=== PATIENT | male | born 1950 | race Caucasian/White ===

== ENCOUNTER 2020-03-07 10:10 | Emergency (ER) | payer MEDICARE, BC ==
[2020-03-07] MEDS ORDERED: Lidocaine 1% 10 ML MDV INJECT ONE (10:37)
--- NOTE | 2020-03-07 10:54 | CT ---
Head CT Technique: Multiple axial sections through the brain were obtained. Intravenous contrast was not utilized. Comparison: No prior intracranial imaging is available. Findings: Ventricles along with basal cisterns and sulci over the convexities are mildly prominent. No abnormal parenchymal densities are seen. No evidence of intracranial hemorrhage. No midline shift or mass-effect is seen. Bone window settings were reviewed. No acute calvarial abnormality is seen. Visualized mastoid sinuses and visualized paranasal sinuses show nothing acute. No acute calvarial finding is appreciated. Impression: 1. Mild generalized atrophy. 2. No acute intracranial abnormality is identified. Diagnostic code #2 This report was dictated in MDT
--- NOTE | 2020-03-07 11:29 | CR ---
Left shoulder: 3 views left shoulder were obtained. Comparison: No prior shoulder study is available. Study correlated with chest and rib exam performed on the same day. Acromioclavicular joint appears within normal limits. Mild degenerative change is noted within the glenohumeral joint. Bony structures are osteopenic. Equivocal cortical irregularity within 3 or 4 ribs is noted on the left side. Difficult to completely exclude acute or chronic rib fractures. These findings are not seen on rib exam performed on the same day which likely relates to differences in positioning on the shoulder study. Impression: 1. 3 or 4 rib abnormalities possibly due to acute or chronic rib fractures. 2. Degenerative change within the glenohumeral joint. Diagnostic code #3 This report was dictated in MDT
--- NOTE | 2020-03-07 11:29 | CR ---
Chest and left ribs: Frontal view of the chest was obtained as well as 3 views left ribs. Comparison: Previous chest x-ray of 02/12/20. Heart size is normal. Tortuous thoracic aorta is seen. Lungs are clear with no acute parenchymal change. No discrete fracture or other left-sided rib abnormality is appreciated. Degenerative endplate spurring is noted within the spine. Impression: 1. No discrete left-sided rib fracture is seen. Nondisplaced fracture could be missed. 2. Nothing acute is seen on accompanying chest x-ray. Note: Please see left shoulder study for further rib detail comment. Diagnostic code #2 This report was dictated in MDT
--- NOTE | 2020-03-07 12:17 | EDM.PDOC ---
ED HPI GENERAL MEDICAL PROBLEM - General Chief Complaint: Laceration Stated Complaint: EYE LAC Time Seen by Provider: 03/07/20 10:18 Source of Information: Reports: Patient, RN Notes Reviewed - History of Present Illness INITIAL COMMENTS - FREE TEXT/NARRATIVE: 69 yr old male tripped stepping off of or over a curb. Came down hard on his L side, hit L forehead on the L. No LOC. Very mild Arnold only, no nausea or vomiting. He is on eliquis blood thinner for his heart, probable a fib. No neck or back pain. Moderate L shoulder pain, worse with motion of L arm. Mild L chest wall pain. Head Pain Score (Numeric/FACES): 4 - Related Data Allergies Allergy/AdvReac Type Severity Reaction Status Date / Time No Known Allergies Allergy Verified 03/07/20 10:51 Home Meds: Home Meds Apixaban [Eliquis] 5 mg PO BID 03/07/20 [History] Flecainide Acetate 100 mg PO BID 03/07/20 [History] Irbesartan 300 mg PO DAILY 03/07/20 [History] Triamterene/Hydrochlorothiazid [Triamterene-HCTZ 37.5-25 MG] 1 tab PO DAILY [History] atenoloL [Atenolol] 50 mg PO BID 03/07/20 [History] dilTIAZem HCl [Diltiazem 24Hr ER (Cd)] 180 mg PO DAILY 03/07/20 [History] Past Medical History Other Cardiovascular History: atrial fibrilation Endocrine/Metabolic History: Reports: Diabetes, Type II - Past Surgical History Cardiovascular Surgical History: Reports: Cardiac Ablation GI Surgical History: Reports: Colonoscopy Musculoskeletal Surgical History: Reports: Knee Replacement Social & Family History - Tobacco Use Smoking Status *Q: Never Smoker - Caffeine Use Caffeine Use: Reports: None - Recreational Drug Use Recreational Drug Use: No ED ROS GENERAL - Review of Systems Review Of Systems: See Below Constitutional: Reports: No Symptoms HEENT: Denies: Ear Discharge, Sinus Problem, Vertigo, Vision Change Respiratory: Reports: Pleuritic Chest Pain (very mild). Denies: Shortness of Breath Cardiovascular: Reports: Chest Pain GI/Abdominal: Denies: Abdominal Pain, Nausea, Vomiting Musculoskeletal: Reports: Shoulder Pain. Denies: Back Pain, Leg Pain Skin: Reports: Other (L injury L forehead) Neurological: Reports: Headache (very mild only). Denies: Numbness, Tingling, Trouble Speaking, Difficulty Walking ED EXAM, SKIN/RASH Exam: See Below General Appearance: Alert, No Apparent Distress Ears: Normal External Exam Nose: Normal Inspection Throat/Mouth: Normal Inspection Head: Facial Swelling (with 2.5 cm L L forehead just above L eyebrow) Neck: Supple, Non-Tender Respiratory/Chest: No Respiratory Distress, Lungs Clear, Normal Breath Sounds Cardiovascular: Regular Rate, Rhythm Back Exam: No: Paraspinal Tenderness, Vertebral Tenderness Extremities: Other (tenderness L shoulder, no visible swelling or bruising) Neurological: No Motor/Sensory Deficits Skin: Warm, Dry, Normal Color ED SKIN PROCEDURES - Laceration/Wound Repair Left Forehead Appearance: Linear, Irregular Distal NVT: Neuro & Vascular Intact Anesthetic Type: Local Local Anesthesia - Lidocaine (Xylocaine): 1% Plain Skin Prep: Saline Suture Size: 4-0 # of Sutures: 7 Course - Vital Signs Last Recorded V/S: Last Vital Signs Temp 97.5 F 03/07/20 10:17 Pulse 68 03/07/20 10:17 Resp 13 03/07/20 10:17 BP 183/86 H 03/07/20 10:17 Pulse Ox 95 03/07/20 10:17 - Orders/Labs/Meds Orders: Active Orders 24 hr Category Date Time Status DME for Discharge [COMM] Stat Oth 03/07/20 12:37 Ordered Meds: Medications Discontinued Medications Generic Name Dose Route Start Last Admin Trade Name Freq PRN Reason Stop Dose Admin Lidocaine HCl 10 ml 03/07/20 10:37 03/07/20 11:19 Xylocaine 1% INJECT 03/07/20 10:38 10 ml ONETIME ONE Administration Departure - Departure Time of Disposition: 12:11 Disposition: Home, Self-Care 01 Condition: Fair Clinical Impression: Fall Qualifiers: Encounter type: initial encounter Qualified Code(s): W19.XXXA - Unspecified fall, initial encounter Contusion of forehead Qualifiers: Encounter type: initial encounter Qualified Code(s): S00.83XA - Contusion of other part of head, initial encounter Laceration of forehead Qualifiers: Encounter type: initial encounter Qualified Code(s): S01.81XA - Laceration without foreign body of other part of head, initial encounter Shoulder contusion Qualifiers: Encounter type: initial encounter Laterality: left Qualified Code(s): S40.012A - Contusion of left shoulder, initial encounter - Discharge Information Instructions: Contusion, [id number] Referrals: Cordelia Newell, [employer]HER [Primary Care Provider] - Forms: ED Department Discharge Additional Instructions: Lac care instr. Ice packs and elevation for swelling as needed. Stitches out in about 7 days. That can be done at the [facility], call for appt. Tylenol if needed for discomfort. Arm Sling. Start exercising shoulder and arm at least twice daily so you do not get a stiff frozen shoulder. Follow up clinic for shoulder pain as needed if that is not getting better over the next 7 to 10 days as needed. Return to ED or follow up clinic for any severe difficulty breathing or if symptoms otherwise worsening in any way. Sepsis Event Note - Evaluation Sepsis Screening Result: No Definite Risk - Focused Exam Vital Signs: Vital Signs Temp Pulse Resp BP Pulse Ox 03/07/20 10:17 97.5 F 68 13 183/86 H 95 Date Exam was Performed: 03/07/20 Time Exam was Performed: 13:03 - My Orders Last 24 Hours: My Active Orders 03/07/20 12:37 DME for Discharge [COMM] Stat - Assessment/Plan Last 24 Hours: My Active Orders 03/07/20 12:37 DME for Discharge [COMM] Stat
== END 2020-03-07 12:50 | disposition home or self-care (01) ==
LOC: JD.ED 10:10
DX: S01.81XA Laceration without foreign body of other part of head, initial encounter (principal); S40.012A Contusion of left shoulder, initial encounter; E11.9 Type 2 diabetes mellitus without complications; I48.91 Unspecified atrial fibrillation; Z79.01 Long term (current) use of anticoagulants; Z79.899 Other long term (current) drug therapy; W01.0XXA Fall on same level from slipping, tripping and stumbling without subsequent striking against object, initial encounter
CPT/HCPCS: 12011; 70450; 71101; 73030; 99285; J2001; 99282

== ENCOUNTER 2020-05-08 16:57 | Emergency (ER) | payer MEDICARE, BC ==
[2020-05-08] MEDS ORDERED: Diltiazem 50 MG/10 ML SDV IVPUSH ONE (17:07)
--- NOTE | 2020-05-08 17:13 | EDM.PDOC ---
ED HPI GENERAL MEDICAL PROBLEM - General Chief Complaint: Cardiovascular Problem Stated Complaint: [facility] Time Seen by Provider: 05/08/20 17:07 Source of Information: Reports: Patient History Limitations: Reports: No Limitations - History of Present Illness INITIAL COMMENTS - FREE TEXT/NARRATIVE: 69-year-old male presents to the ED per [facility] ambulance. The patient started out with the [place] ambulance with network liaison and then opted to meet up with [facility] paramedics to provide transport to [place]. Patient states that around 1500 hrs. today he started to feel slightly lightheaded and dizzy and did develop some central chest pressure discomfort. He did not feel quite well and therefore decided to go home and check his blood pressure which was gia vated and also his heart rate was elevated. Patient has a history of chronic atrial fibrillation with failed ablation in the past. He has been on flecainide and has not had much troubles in terms of rapid atrial fibrillation rates for the last 2 years. He reports he has not missed any of his medications. The only thing he did different this morning was take some CBD oils that someone had given to him to relieve his right hip pain. His hip is worn out and he needs a total hip replacement. Associated symptoms were slight lightheadedness dizziness mild nausea and then shortness of breath. No real weakness in his extremities. Never did vomit. Blood pressure in the clinic was as high as 190 systolic. They did not have any Cardizem at the [place] clinic when Camila Seymour called me and I advised therefore metoprolol 5 mg IV over 2 to 3 minutes. Dates that this did bring his blood pressure down and his chest discomfort dissipated. He had no chest pain in route to [place] and it remains gone. As far as he knows he has no coronary disease. Paramedics indicate heart rate was anywhere from 1 136-185 in route to [place]. Onset: Today, Sudden Onset Date: 05/08/20 Onset Time: 15:00 (Darted to feel unwell with slight dizziness and then became aware of rapid heart rate shortly thereafter.) Duration: Hour(s):, Constant, Other (No further central chest discomfort.) Location: Reports: Chest (Aware of slight awareness of a rapid irregular heart rate. Some mild central chest pressure discomfort which she has never felt before. He believes it lasted to good half an hour.) Quality: Reports: Other (Regular heartbeat associate with mild dyspnea at this time. Blood pressure also remains elevated) Severity: Moderate Improves with: Reports: Other (Chest pain seemed to dissipate after receiving metoprolol 5 mg IV in the [facility] at my suggestion.) Worsens with: Reports: None Context: Reports: Other. Denies: Activity, Exercise, Lifting, Sick Contact, Trauma Associated Symptoms: Reports: Chest Pain, Malaise, Nausea/Vomiting, Shortness of Breath, Weakness (Mild weakness). 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 (see below) (Was given metoprolol 5 mg IV in [facility] at my suggestion.) Chest Pain Score (Numeric/FACES): 1 - Related Data Allergies Allergy/AdvReac Type Severity Reaction Status Date / Time No Known Allergies Allergy Verified 05/08/20 17:08 Home Meds: Home Meds Apixaban [Eliquis] 5 mg PO BID 03/07/20 [History] Flecainide Acetate 100 mg PO BID 03/07/20 [History] Irbesartan 300 mg PO DAILY 03/07/20 [History] Triamterene/Hydrochlorothiazid [Triamterene-HCTZ 37.5-25 MG] 1 tab PO DAILY 03/07/20 [History] atenoloL [Atenolol] 50 mg PO BID 03/07/20 [History] dilTIAZem HCL [Diltiazem 24Hr ER (Cd)] 180 mg PO DAILY 03/07/20 [History] Past Medical History Other Cardiovascular History: atrial fibrilation Endocrine/Metabolic History: Reports: Diabetes, Type II - Past Surgical History Cardiovascular Surgical History: Reports: Cardiac Ablation GI Surgical History: Reports: Colonoscopy Musculoskeletal Surgical History: Reports: Knee Replacement Social & Family History - Caffeine Use Caffeine Use: Reports: None - Living Situation & Occupation Living situation: Reports: Occupation: Employed Social History Comment: Self[facility] GENERAL - Review of Systems Review Of Systems: See Below Constitutional: Reports: Malaise, Fatigue. Denies: Fever, Chills, Decreased Appetite HEENT: Reports: Glasses (For reading.) Respiratory: Reports: Shortness of Breath (Associated with a rapid irregular heart rate today.). Denies: Wheezing, Pleuritic Chest Pain, Cough, Sputum Cardiovascular: Reports: Chest Pain (As he had central chest discomfort around 1500 hrs. this is about a half an hour), Blood Pressure Problem, Dyspnea on Exertion, Edema (Chronic mild lower extremity edema he states it is worse now than it is usually been.), Lightheadedness, Palpitations (M aware of rapid heart rate very minimally prior to going to the [place] [facility] today.). Denies: Claudication (.), Orthopnea (Area of mild lightheadedness) Endocrine: Reports: Fatigue GI/Abdominal: Reports: Nausea (Nausea without any vomiting.). Denies: Constipation, Diarrhea : Reports: Frequency, Other (Nocturia x2. Has known BPH.) Musculoskeletal: Reports: Neck Pain, Shoulder Pain, Back Pain, Joint Pain (Has a really bad right hip [id number] that requires total hip replacement.) Skin: Reports: Bruising (This is easily if he blames himself as he is on Eliquis.) Neurological: Reports: Dizziness. Denies: Confusion, Headache, Numbness (Slight dizziness today.), Paresthesia, Pre-Existing Deficit, Seizure, Syncope, Tingling, Tremors, Trouble Speaking, Difficulty Walking, Weakness Psychiatric: Reports: No Symptoms Hematologic/Lymphatic: Reports: No Symptoms Immunologic: Reports: No Symptoms ED EXAM, GENERAL - Physical Exam Exam: See Below Exam Limited By: No Limitations General Appearance: Alert, WD/WN, Anxious, Mild Distress, Other (Temperature is 36.9. Heart rate is irregular irregular with anywhere from 136-165 on the monitor. Respiratory rate 18 with O2 sats of 93% on room air.) Throat/Mouth: Normal Inspection, Normal Lips, Normal Oropharynx, Other (Tongue is moist.) Head: Atraumatic, Normocephalic Neck: Normal Inspection, Limited Range of Motion (Crepitus on range of motion particularly lateral rotation.), Tender Lateral (Tenderness bilateral cervical spine.), Other (No JVD.). No: Full Range of Motion, Carotid Bruit, Lymphadenopathy (L), Lymphadenopathy (R) Respiratory/Chest: No Respiratory Distress, No Accessory Muscle Use, Decreased Breath Sounds (Decreased breath sounds to the left lung base as compared to the right with slight dullness to percussion percussion suggesting a small pleural effusion.). No: Crackles, Rales, Rhonchi, Wheezing Cardiovascular: Normal Peripheral Pulses, No Gallop, No JVD, No Murmur, No Rub, Tachycardia ( rapid ventricular response with with 136 to 185/min.), Irregularly Irregular (Patient has a history of chronic atrial fibrillation. Currently he is in). No: No Edema Peripheral Pulses: 1+: Dorsalis Pedis (L) (Actually obscured by edema.), Dorsalis Pedis (R), 2+: Carotid (L), Carotid (R), Radial (L), Radial (R) GI/Abdominal: Normal Bowel Sounds, Soft, Non-Tender, No Organomegaly, No Mass, Pelvis Stable, Other (No abdominal surgical scars. Mild obesity.) Back Exam: Normal Inspection, Full Range of Motion, Decreased Range of Motion (Patient has difficulty reaching for his kneecaps and pain on full extension.). No: CVA Tenderness (L) Extremities: Pedal Edema (Pitting edema in both lower extremities with venous stasis dermatitis bilaterally. There are no open ulcerations.) Neurological: Alert, Oriented, CN II-XII Intact, Normal Cognition, No Motor/Sensory Deficits. No: Normal Gait (Limping gait due to) Psychiatric: Anxious Skin Exam: Warm, Dry, Intact (Mildly anxious), Normal Color, No Rash EKG INTERPRETATION EKG Date: 05/08/20 Time: 17:16 Rhythm: A-Fib (Rate of 90 to 155/min.) Rate (Beats/Min): 138 [place]: LAD-Left [place] Deviation (Mild left axis deviation -16 degrees) P-Wave: Absent QRS: Other (Q waves present in leads III and aVF compared with old inferior wall myocardial infarction. There is a left ventricular hypertrophy pattern.) ST-T: Other (Diffuse early repolarization pattern likely due to rapid rate.) QT: Prolonged (Moderately prolonged) EKG Interpretation Comments: Abnormal ECG Course - Vital Signs Last Recorded V/S: Last Vital Signs Temp 36.9 C 05/08/20 17:04 Pulse 83 05/08/20 18:10 Resp 18 05/08/20 17:04 BP 118/84 05/08/20 18:10 Pulse Ox 93 L 05/08/20 17:04 - Orders/Labs/Meds Orders: Active Orders 24 hr Category Date Time Status EKG Documentation Completion [RC] STAT Care 05/08/20 17:09 Active Chest 1V Frontal [CR] Stat Exams 05/08/20 17:09 Taken Diltiazem [Cardizem] 100 mg Med 05/08/20 17:15 Active Sodium Chloride 0.9% [Normal Saline] 100 ml IV TITRATE Sodium Chloride 0.9% [Normal Saline] 1,000 ml Med 05/08/20 17:15 Active IV ASDIRECTED Medication Orders Sodium Chloride (Normal Saline) 1,000 mls @ 75 mls/hr IV ASDIRECTED LISANDRO Last Admin: 05/08/20 17:42 Dose: 75 mls/hr Documented by: CHIVO Diltiazem HCl 100 mg/ Sodium (Chloride) 100 mls @ 10 mls/hr IV TITRATE LISANDRO; Protocol Labs: Laboratory Tests 05/08/20 05/08/20 05/08/20 Range/Units 17:25 17:25 17:25 WBC 9.47 H (4.23-9.07) K/mm3 RBC 5.74 (4.63-6.08) M/mm3 Hgb 16.7 (13.7-17.5) gm/dl Hct 48.6 (40.1-51.0) % MCV 84.7 (79.0-92.2) fl MCH 29.1 (25.7-32.2) pg MCHC 34.4 (32.2-35.5) g/dl RDW Std Deviation 42.1 (35.1-43.9) fL Plt Count 242 (163-337) K/mm3 MPV 10.0 (9.4-12.3) fl Neut % (Auto) 65.7 (34.0-67.9) % Lymph % (Auto) 21.4 L (21.8-53.1) % Powell % (Auto) 11.5 (5.3-12.2) % Eos % (Auto) 0.7 L (0.8-7.0) Baso % (Auto) 0.4 (0.1-1.2) % Neut # (Auto) 6.21 H (1.78-5.38) K/mm3 Lymph # (Auto) 2.03 (1.32-3.57) K/mm3 Powell # (Auto) 1.09 H (0.30-0.82) K/mm3 Eos # (Auto) 0.07 (0.04-0.54) K/mm3 Baso # (Auto) 0.04 (0.01-0.08) K/mm3 PT 10.2 (9.7-12.0) SECONDS INR 0.93 APTT 29 (22-31) SECONDS D-Dimer, Quantitative (0.19-0.50) mg/L Sodium 140 (136-145) mEq/L Potassium 4.1 (3.5-5.1) mEq/L Chloride 103 (98-107) mEq/L Carbon Dioxide 25 (21-32) mEq/L Anion Gap 16.1 H (5-15) BUN 24 H (7-18) mg/dL Creatinine 1.1 (0.7-1.3) mg/dL Est Cr Clr Drug Dosing 69.61 mL/min Estimated GFR (MDRD) > 60 (>60) mL/min BUN/Creatinine Ratio 21.8 H (14-18) Glucose 420 H (83-115) mg/dL POC Glucose (83-110) mg/dL Calcium 9.0 (8.5-10.1) mg/dL Magnesium 2.1 (1.8-2.4) mg/dl Total Bilirubin 0.6 (0.2-1.0) mg/dL AST 15 (15-37) U/L ALT 30 (16-63) U/L Alkaline Phosphatase 106 (46-116) U/L CK-MB (CK-2) 2.8 (0-3.6) ng/ml Troponin I < 0.017 (0.00-0.056) ng/mL C-Reactive Protein 1.3 H* (<1.0) mg/dL NT-Pro-B Natriuret Pep (0-125) pg/mL Total Protein 7.1 (6.4-8.2) g/dl Albumin 3.8 (3.4-5.0) g/dl Globulin 3.3 gm/dL Albumin/Globulin Ratio 1.2 (1-2) TSH 3rd Generation 1.474 (0.358-3.74) uIU/mL Urine Color (Yellow) Urine Appearance (Clear) Urine pH (5.0-8.0) Ur Specific [place] (1.005-1.030) Urine Protein (Negative) Urine Glucose (UA) (Negative) Urine Ketones (Negative) Urine Occult Blood (Negative) Urine Nitrite (Negative) Urine Bilirubin (Negative) Urine Urobilinogen (0.2-1.0) Ur Leukocyte Esterase (Negative) Urine RBC (0-5) /hpf Urine WBC (0-5) /hpf Ur Epithelial Cells (0-5) /hpf Urine Bacteria (FEW) /hpf Urine Mucus (FEW) /hpf 05/08/20 05/08/20 05/08/20 Range/Units 17:25 17:25 17:25 WBC (4.23-9.07) K/mm3 RBC (4.63-6.08) M/mm3 Hgb (13.7-17.5) gm/dl Hct (40.1-51.0) % MCV (79.0-92.2) fl MCH (25.7-32.2) pg MCHC (32.2-35.5) g/dl RDW Std Deviation (35.1-43.9) fL Plt Count (163-337) K/mm3 MPV (9.4-12.3) fl Neut % (Auto) (34.0-67.9) % Lymph % (Auto) (21.8-53.1) % Powell % (Auto) (5.3-12.2) % Eos % (Auto) (0.8-7.0) Baso % (Auto) (0.1-1.2) % Neut # (Auto) (1.78-5.38) K/mm3 Lymph # (Auto) (1.32-3.57) K/mm3 Powell # (Auto) (0.30-0.82) K/mm3 Eos # (Auto) (0.04-0.54) K/mm3 Baso # (Auto) (0.01-0.08) K/mm3 PT (9.7-12.0) SECONDS INR APTT (22-31) SECONDS D-Dimer, Quantitative 0.32 (0.19-0.50) mg/L Sodium (136-145) mEq/L Potassium (3.5-5.1) mEq/L Chloride (98-107) mEq/L Carbon Dioxide (21-32) mEq/L Anion Gap (5-15) BUN (7-18) mg/dL Creatinine (0.7-1.3) mg/dL Est Cr Clr Drug Dosing mL/min Estimated GFR (MDRD) (>60) mL/min BUN/Creatinine Ratio (14-18) Glucose (83-115) mg/dL POC Glucose (83-110) mg/dL Calcium (8.5-10.1) mg/dL Magnesium (1.8-2.4) mg/dl Total Bilirubin (0.2-1.0) mg/dL AST (15-37) U/L ALT (16-63) U/L Alkaline Phosphatase (46-116) U/L CK-MB (CK-2) (0-3.6) ng/ml Troponin I (0.00-0.056) ng/mL C-Reactive Protein (<1.0) mg/dL NT-Pro-B Natriuret Pep 221 H (0-125) pg/mL Total Protein (6.4-8.2) g/dl Albumin (3.4-5.0) g/dl Globulin gm/dL Albumin/Globulin Ratio (1-2) TSH 3rd Generation (0.358-3.74) uIU/mL Urine Color Yellow (Yellow) Urine Appearance Clear (Clear) Urine pH 7.0 (5.0-8.0) Ur Specific [place] 1.020 (1.005-1.030) Urine Protein Negative (Negative) Urine Glucose (UA) 2+ H (Negative) Urine Ketones Negative (Negative) Urine Occult Blood Negative (Negative) Urine Nitrite Negative (Negative) Urine Bilirubin Negative (Negative) Urine Urobilinogen 0.2 (0.2-1.0) Ur Leukocyte Esterase Negative (Negative) Urine RBC 0-5 (0-5) /hpf Urine WBC 0-5 (0-5) /hpf Ur Epithelial Cells Not seen (0-5) /hpf Urine Bacteria Not seen (FEW) /hpf Urine Mucus Rare (FEW) /hpf /18/20 Range/Units 17:27 WBC (4.23-9.07) K/mm3 RBC (4.63-6.08) M/mm3 Hgb (13.7-17.5) gm/dl Hct (40.1-51.0) % MCV (79.0-92.2) fl MCH (25.7-32.2) pg MCHC (32.2-35.5) g/dl RDW Std Deviation (35.1-43.9) fL Plt Count (163-337) K/mm3 MPV (9.4-12.3) fl Neut % (Auto) (34.0-67.9) % Lymph % (Auto) (21.8-53.1) % [place] % (Auto) (5.3-12.2) % Eos % (Auto) (0.8-7.0) Baso % (Auto) (0.1-1.2) % Neut # (Auto) (1.78-5.38) K/mm3 Lymph # (Auto) (1.32-3.57) K/mm3 [place] # (Auto) (0.30-0.82) K/mm3 Eos # (Auto) (0.04-0.54) K/mm3 Baso # (Auto) (0.01-0.08) K/mm3 PT (9.7-12.0) SECONDS INR APTT (22-31) SECONDS D-Dimer, Quantitative (0.19-0.50) mg/L Sodium (136-145) mEq/L Potassium (3.5-5.1) mEq/L Chloride (98-107) mEq/L Carbon Dioxide (21-32) mEq/L Anion Gap (5-15) BUN (7-18) mg/dL Creatinine (0.7-1.3) mg/dL Est Cr Clr Drug Dosing mL/min Estimated GFR (MDRD) (>60) mL/min BUN/Creatinine Ratio (14-18) Glucose (83-115) mg/dL POC Glucose 389 H (83-110) mg/dL Calcium (8.5-10.1) mg/dL Magnesium (1.8-2.4) mg/dl Total Bilirubin (0.2-1.0) mg/dL AST (15-37) U/L ALT (16-63) U/L Alkaline Phosphatase (46-116) U/L CK-MB (CK-2) (0-3.6) ng/ml Troponin I (0.00-0.056) ng/mL C-Reactive Protein (<1.0) mg/dL NT-Pro-B Natriuret Pep (0-125) pg/mL Total Protein (6.4-8.2) g/dl Albumin (3.4-5.0) g/dl Globulin gm/dL Albumin/Globulin Ratio (1-2) TSH 3rd Generation (0.358-3.74) uIU/mL Urine Color (Yellow) Urine Appearance (Clear) Urine pH (5.0-8.0) Ur Specific [place] (1.005-1.030) Urine Protein (Negative) Urine Glucose (UA) (Negative) Urine Ketones (Negative) Urine Occult Blood (Negative) Urine Nitrite (Negative) Urine Bilirubin (Negative) Urine Urobilinogen (0.2-1.0) Ur Leukocyte Esterase (Negative) Urine RBC (0-5) /hpf Urine WBC (0-5) /hpf Ur Epithelial Cells (0-5) /hpf Urine Bacteria (FEW) /hpf Urine Mucus (FEW) /hpf Meds: Medications Generic Name Dose Route Start Last Admin Trade Name Freq PRN Reason Stop Dose Admin Sodium Chloride 1,000 mls @ 75 mls/hr 05/08/20 17:15 05/08/20 17:42 Normal Saline IV 75 mls/hr ASDIRECTED LISANDRO Administration Diltiazem HCl 100 mg/ Sodium 100 mls @ 10 mls/hr 05/08/20 17:15 Chloride IV TITRATE LISANDRO Protocol 10 MG/HR Discontinued Medications Generic Name Dose Route Start Last Admin Trade Name Freq PRN Reason Stop Dose Admin Atenolol 50 mg 05/08/20 17:51 05/08/20 18:10 Tenormin PO 05/08/20 17:52 50 mg ONETIME ONE Administration Diltiazem HCl 15 mg 05/08/20 17:07 05/08/20 17:30 Cardizem IVPUSH 05/08/20 17:08 Not Given ONETIME ONE Diltiazem HCl Confirm 05/08/20 17:30 05/08/20 17:30 Cardizem Administered 05/08/20 17:31 Not Given Dose 100 mg .ROUTE .STK-MED ONE Flecainide Acetate 100 mg 05/08/20 17:49 05/08/20 18:09 Tambocor PO 05/08/20 17:50 100 mg ONETIME ONE Administration Sodium Chloride Confirm 05/08/20 17:32 05/08/20 17:30 Normal Saline Administered 05/08/20 17:33 Not Given Dose 100 mls @ as directed .ROUTE .STK-MED ONE Insulin Human Regular 14 unit 05/08/20 18:33 05/08/20 19:05 Humulin R SUBCUT 05/08/20 18:34 14 unit ONETIME ONE Administration - Radiology Interpretation Free Text/Narrative:: Male attends the ED at the request of his primary care provider India Seymour at the [facility]. He presented there shortly after 1500 hrs. today when he started to feel unwell with slight dizziness and central chest discomfort. When he went home to check his blood pressure he found to be markedly elevated and his heart rate was irregular regular and he became aware that his heart was racing in his chest. Of note the patient has history of chronic atrial fibrillation with previous failed ablation. He has been on flecainide now for the last 2 years and has not had much problems since being on that medication. Currently on 100 mg twice daily. Is also on Cardizem to 40 mg extended release once daily for rate control and he is on Eliquis and milligrams twice daily . He received metoprolol 5 mg intravenously at the clinic at my request due to the fact that he was experiencing some central chest pain presumably angina from his rapid heart rate. He was in atrial fib in the 130s to 185 area. He was transferred from [place] ambulance to [facility] ambulance where they had players club representative support. However they do not carry Cardizem either. They called me about his blood pressure being markedly elevated but I elected to adopt a [id number] approach as we are going to start him on Cardizem here they would only have had nitroglycerin to treat him with and he did not have any further chest pain. He is stable with no further chest pain. Heart rate is in the 130s to 180s. Is in atrial fibrillation with rapid ventricular response. He has some shortness of breath and clinically has slight dullness to percussion in his left lower lung field perhaps a mild pleural effusion evident. Is have mild 2+ pitting edema both lower extremities. See usually has some edema chronically. And he will be started on Cardizem 15 mg IV bolus then 10 mg/h to bring his rate and blood pressure under control. Routine labs including magnesium and TSH to be done. 1 chest x-ray to be done. - Re-Assessments/Exams Free Text/Narrative Re-Assessment/Exam: 05/08/20 17:28.medication the patient converted back to sinus rhythm in the 80s. Blood pressure also came down to 135/88. Also feels better now like he can take a full deep breath. On firm questioning he believes that he probably missed the evening's dose of both his flecainide and metoprolol 3 days last week and he may have missed his medications this morning as well. Therefore noncompliance is the likely reason that he had a breakthrough bout of atrial fibrillation with rapid ventricular rate. I will await the results of his chest x-ray and labs but it appears that we do not need to change any of his medications. Going to give him flecainide 100 mg by mouth now which would be his normal dosage for the evening as well as atenolol 50 mg by mouth as well. Hopefully keep him in sinus rhythm. His blood sugar was 369 at the bedside it was 359 in the ambulance. He is an insulin-dependent diabetic and takes Lantus once daily usually in the evening and his blood sugars in the mornings are usually 90-120. Takes only 1 dose usually of Humalog insulin because it makes him gain some much weight. He takes this with his largest meal which is usually supper. This time I am not going to give him any insulin. 05/08/20 18:29 White count is 9.47 with 66% neutrophils on the auto differential. Hemoglobin is 16.7 with hematocrit of 48.6 suggesting mild hemoconcentration. Platelet count 242,000. PT is 10.2 with an INR of 0.93. PTT is 29. Sodium 140 with a potassium of 4.1. Chloride 103 with a bicarb of 25. Anion gap is mildly elevated at 16.1. BUN is 24 with a creatinine of 1.1. GFR remains greater than 60. Glucose is 420. At the bedside it was 389. Calcium is 9.0 with a magnesium of 2.1. Bilirubin 0.6 AST is 15 with an ALT of 30. Alk phos 106. CK-MB fraction is 2.8 with a troponin I of less than 0.017. C-reactive protein is 1.3. Total protein 7.1 with an albumin fraction of 3.8. TSH is 1.474. Urinalysis shows 2+ glucosuria but no signs of infection or proteinuria. 05/08/20 18:34 to the elevated blood sugar at 420 I will give him 14 units of regular insulin subcutaneously at this time. Blood pressure is 127/82. Heart rate remains in the 80s at 81 sinus rhythm he will therefore be discharged to home. Chest x-ray done over in the x-ray department is overpenetrated. Cardiac silhouette is within normal limits. Lungs do not show any obvious infiltrates. No pleural effusions. 05/08/20 19:13 lab of ability to do a BNP is still down. They are still working on the machine. Sats improved to 94%. Heart rate remains 69 and sinus. He will therefore be discharged to home with no change in medications but needs to be more compliant with his medications as well as his insulin to control his diabetes. D-dimer is 0.32 therefore no sign of a PE. 05/08/20 19:19 BNP came back just now at 221. This does not deserve any treatment. Therefore no changes in medications will be made. Patient discharg ed to home. Departure - Departure Time of Disposition: 19:14 Disposition: Home, Self-Care 01 Reason for Transfer *Q: Other Condition: Fair Clinical Impression: Chronic atrial fibrillation with rapid ventricular response Hypertensive heart disease Qualifiers: Heart failure presence: with heart failure Heart failure type: unspecified Qualified Code(s): I11.0 - Hypertensive heart disease with heart failure Uncontrolled type 2 diabetes mellitus Qualifiers: Glycemic state: with hyperglycemia Qualified Code(s): E11.65 - Type 2 diabetes mellitus with hyperglycemia Instructions: Hyperglycemia, Type 2 Diabetes Mellitus, Self Care, Adult, [id number] Referrals: PCP,Unknown [Ordering Only Provider] - Forms: ED Department Discharge Additional Instructions: Evaluation in the emergency room today at the request of your primary care provider in [place]. You identified that at around 1500 hrs. today he started to feel unwell with slight dizziness and central chest pressure discomfort. At home blood pressure was elevated as was your heart rate. The clinic confirmed that you were in rapid atrial fibrillation up to 185/min. You were therefore sent here for further evaluation and treatment. Just as we were about to give you a dose of Cardizem intravenously to bring your heart rate under control you converted back to sinus rhythm in the 80s. You have remained in the 60s to 80s since conversion back to regular rhythm. He did receive metoprolol 5 mg intravenously in [place] clinic at my suggestion. Given your flecainide and atenolol medication in the ED today. You are also given 14 units of regular insulin because your blood sugar was 420 in the department today. Minimal heart failure identified on lab testing which does not need treatment at this time. Compliance with your medications is very important to prevent your from going back into rapid atrial fibrillation. Changes will be made to medications at this time as long as you are compliant with the current medications you are on. With your personal care provider as planned. Sepsis Event Note (ED) - Focused Exam Vital Signs: Vital Signs Temp Pulse Pulse Resp BP BP Pulse Ox 05/08/20 18:10 83 118/84 05/08/20 17:34 135/81 05/08/20 17:04 36.9 C 133 H 18 189/172 H 93 L - My Orders Last 24 Hours: My Active Orders 05/08/20 17:09 EKG Documentation Completion [RC] STAT Chest 1V Frontal [CR] Stat 05/08/20 17:15 Diltiazem [Cardizem] 100 mg Sodium Chloride 0.9% [Normal Saline] 100 ml IV TITRATE Sodium Chloride 0.9% [Normal Saline] 1,000 ml IV ASDIRECTED - Assessment/Plan Last 24 Hours: My Active Orders 05/08/20 17:09 EKG Documentation Completion [RC] STAT Chest 1V Frontal [CR] Stat 05/08/20 17:15 Diltiazem [Cardizem] 100 mg Sodium Chloride 0.9% [Normal Saline] 100 ml IV TITRATE Sodium Chloride 0.9% [Normal Saline] 1,000 ml IV ASDIRECTED
[2020-05-08] MEDS ORDERED: Sodium Chloride 0.9% 1,000 ML IV SCH (17:15)
[2020-05-08] MEDS ORDERED: Diltiazem 100 MG in Sodium Chloride 0.9% 100 ML IV SCH (17:15)
[2020-05-08] MEDS ORDERED: Diltiazem 100 MG AdvVial ONE (17:30)
[2020-05-08] MEDS ORDERED: Sodium Chloride 0.9% 100 ML ONE (17:32)
[2020-05-08] MEDS ORDERED: Flecainide 50 MG Tab PO ONE (17:49)
[2020-05-08] MEDS ORDERED: Atenolol 50 MG Tab PO ONE (17:51)
[2020-05-08] MEDS ORDERED: Insulin Regular, Human 100 Units/ML 3 ML Vial SUBCUT ONE (18:33)
--- NOTE | 2020-05-08 20:06 | CR ---
Chest: Frontal view of the chest was obtained. Comparison: Prior chest x-ray of 02/12/20. Heart size is slightly enlarged. Upper mediastinum is normal. Lungs are clear with no acute parenchymal change. Bony structures are grossly intact. Impression: 1. Nothing acute is seen on frontal chest x-ray. Diagnostic code #2 Study was dictated in MDT
== END 2020-05-08 19:38 | disposition home or self-care (01) ==
LOC: JD.ED 16:57
DX: E11.65 Type 2 diabetes mellitus with hyperglycemia (principal); I11.0 Hypertensive heart disease with heart failure; I50.9 Heart failure, unspecified; I48.20 Chronic atrial fibrillation, unspecified; Z79.01 Long term (current) use of anticoagulants; Z79.899 Other long term (current) drug therapy
CPT/HCPCS: 36415; 71045; 80053; 81001; 82553; 82962; 83735; 83880; 84443; 84484; 85025; 85379; 85610; 85730; 86140; 93005; 96360; 96361; 99285; A9270; J1815; J7030; 93010

== ENCOUNTER → 2020-10-29 | Day surgery (SDC) | payer MEDICARE, BC ==
[~2020-10-29] MED LIST: Acetaminophen 325 MG Tab PO SCH; Lactated Ringers 1,000 ML IV SCH; Lactated Ringers 2,000 ML ONE; Lidocaine 1% 4 ML ONE; Lidocaine 1%/Sod Bicarbonate in NS 8.4% 1 ML Syringe IDERM PRN; Midazolam 1 MG/ML 2 ML SDV ONE; Ondansetron 4 MG/2 ML SDV IVPUSH PRN; Ondansetron 4 MG/2 ML SDV ONE; Pregabalin 25 MG Cap PO SCH; Propofol 200 MG/20 ML SDV ONE; Sodium Chloride 0.9% 10 ML Syringe FLUSH PRN; ceFAZolin 1 GM Vial ONE; diphenhydrAMINE 50 MG/ML SDV IVPUSH PRN; ePHEDrine 50 MG/ML SDV ONE; fentaNYL 100 MCG/2 ML SDV IVPUSH PRN; oxyCODONE ER 10 MG TAB.ER PO SCH
--- NOTE | 2020-10-29 08:29 | PCM.PREANE ---
Preanesthetic Assessment - Procedure Proposed Procedure: right total hip arthroplasty - Anesthesia/Transfusion/Family Hx Anesthesia History: Prior Anesthesia Without Reaction (c) Family History of Anesthesia Reaction: No Transfusion History: No Prior Transfusion(s) Intubation History: Unknown - Review of Systems General: No Symptoms Pulmonary: Other (DL- CPAP ) Cardiovascular: Dyspnea on Exertion (up 2 flights of stairs ) Gastrointestinal: No Symptoms Neurological: No Symptoms Other: Reports: None, Diabetes - Physical Assessment NPO Status Date: 10/28/20 NPO Status Time: 23:00 Height: 1.85 m Weight: 113.852 kg ASA Class: 3 Mental Status: Alert & Oriented x3 Airway Class: Mallampati = 1 Dentition: Reports: Normal Dentition Thyro-Mental Finger Breadths: 3 Mouth Opening Finger Breadths: 4 ROM/Head Extension: Full Lungs: Clear to Auscultation, Normal Respiratory Effort Cardiovascular: Regular Rate, Regular Rhythm, Murmurs - Lab Values: Laboratory Last Values MRSA (PCR) Negative 10/21/20 14:58 - Allergies Allergies/Adverse Reactions: Allergies Allergy/AdvReac Type Severity Reaction Status Date / Time No Known Allergies Allergy Verified 10/28/20 16:10 - Blood Blood Available: No - Anesthesia Plan Pre-Op Medication Ordered: None Med Last Dose Date: 10/29/20 Med Last Dose Time: 05:00 - Acknowledgements Anesthesia Type Planned: Spinal Pt an Appropriate Candidate for the Planned Anesthesia: Yes Alternatives and Risks of Anesthesia Discussed w Pt/Guardian: Yes Pt/Guardian Understands and Agrees with Anesthesia Plan: Yes PreAnesthesia Questionnaire HEENT History: Reports: Impaired Vision Cardiovascular History: Reports: Afib, High Cholesterol, Hypertension, Other (See Below) Other Cardiovascular History: atrial fibrilation, aortic valve stenosis, chest discomfort, fluid retention, tachycardia Respiratory History: Reports: Sleep Apnea, Other (See Below) Other Respiratory History: dry cough Gastrointestinal History: Reports: GERD Genitourinary History: Reports: Other (See Below) Other Genitourinary History: hematuria, impotence [employer] History: Reports: None Musculoskeletal History: Reports: Other (See Below) Other Musculoskeletal History: right hip pain, arthritis Neurological History: Reports: None Psychiatric History: Reports: None Endocrine/Metabolic History: Reports: Diabetes, Type II, Vitamin D Deficiency Hematologic History: Reports: Other (See Below) Other Hematologic History: hypokalemia, leukocytosis Immunologic History: Reports: None Oncologic (Cancer) History: Reports: None Dermatologic History: Reports: Other (See Below) Other Dermatologic History: dermatophytosis, sebaceous cyst - Infectious Disease History Infectious Disease History: Reports: Novel Coronavirus - Past Surgical History HEENT Surgical History: Reports: None Cardiovascular Surgical History: Reports: Cardiac Ablation Respiratory Surgical History: Reports: None GI Surgical History: Reports: Colonoscopy Female Surgical History: Reports: None Male Surgical History: Reports: None Endocrine Surgical History: Reports: None Neurological Surgical History: Reports: None Musculoskeletal Surgical History: Reports: Knee Replacement, Other (See Below) Other Musculoskeletal Surgeries/Procedures:: bilateral knee replacement, hip replacement Oncologic Surgical History: Reports: None Dermatological Surgical History: Reports: None - SUBSTANCE USE Tobacco Use Status *Q: Never Tobacco User Recreational Drug Use History: No - HOME MEDS Home Medications: Home Meds Apixaban [Eliquis] 5 mg PO BID 03/07/20 [History] Flecainide Acetate 100 mg PO DAILY 03/07/20 [History] Irbesartan 300 mg PO DAILY 03/07/20 [History] Triamterene/Hydrochlorothiazid [Triamterene-HCTZ 37.5-25 MG] 1 tab PO DAILY 03/07/20 [History] atenoloL [Atenolol] 50 mg PO BID 03/07/20 [History] Insulin Aspart [NovoLOG] 1 dose SQ TIDAC PRN 10/28/20 [History] Insulin Glarg,Human.Rec.Analog [Lantus] 15 units SQ BID 10/28/20 [History] Omeprazole Magnesium [Prilosec Otc] 20 mg PO DAILY 10/28/20 [History] Pravastatin Sodium 80 mg PO DAILY 10/28/20 [History] dilTIAZem HCL [Cardizem Cd] 240 mg PO DAILY 10/28/20 [History] Cyclobenzaprine [Flexeril] 10 mg PO BID PRN #20 tab 10/29/20 [Rx] oxyCODONE 5 - 10 mg PO Q4H PRN #40 tab 10/29/20 [Rx] - CURRENT (IN HOUSE) MEDS Current Meds: Current Medications Acetaminophen (Tylenol) 975 mg PO NOW LISANDRO Stop: 10/29/20 12:00 Last Admin: 10/29/20 08:11 Dose: 975 mg Documented by: Morphine Sulfate 8 mg/Epinephrine HCl 0.3 mg/Cefuroxime Sodium 750 mg/Ketorolac Tromethamine 30 mg/Sodium Chloride 7.9 ml 0 mg .XX ASDIRECTED PRN PRN Reason: Pain Lactated Ringer's (Ringers, Lactated) 1,000 mls @ 125 mls/hr IV ASDIRECTED LISANDRO Stop: 10/29/20 23:00 Lidocaine/Sodium Bicarbonate (Buffered Lidocaine 1% In Ns 8.4%) 0.25 ml IDERM ONETIME PRN PRN Reason: Prior to IV Start Stop: 10/29/20 18:00 Oxycodone HCl (Oxycontin) 10 mg PO ONETIME LISANDRO Stop: 10/29/20 12:00 Last Admin: 10/29/20 08:11 Dose: 10 mg Documented by: Pregabalin (Lyrica) 50 mg PO ONETIME LSIANDRO Stop: 10/29/20 12:00 Last Admin: 10/29/20 08:11 Dose: 50 mg Documented by: Sodium Chloride (Saline Flush) 10 ml FLUSH ASDIRECTED PRN PRN Reason: Keep Vein Open Stop: 10/29/20 18:00 Discontinued Medications Cefazolin Sodium (Ancef) Confirm Administered Dose 2 gm .ROUTE .STK-MED ONE Stop: 10/29/20 07:33 Lidocaine HCl (Xylocaine-Mpf 1%) Confirm Administered Dose 4 mls @ as directed .ROUTE .STK-MED ONE Stop: 10/29/20 07:34 Lidocaine HCl (Xylocaine-Mpf 1%) Confirm Administered Dose 4 mls @ as directed .ROUTE .STK-MED ONE Stop: 10/29/20 07:36 Midazolam HCl (Versed 1 Mg/Ml) Confirm Administered Dose 2 mg .ROUTE .STK-MED ONE Stop: 10/29/20 07:31 Ondansetron HCl (Zofran) Confirm Administered Dose 4 mg .ROUTE .STK-MED ONE Stop: 10/29/20 07:34 Oxycodone HCl (Oxycontin) 10 mg PO ONETIME LISANDRO Stop: 10/29/20 06:00 Propofol (Diprivan 20 Ml) Confirm Administered Dose 400 mg .ROUTE .STK-MED ONE Stop: 10/29/20 07:31
[2020-10-29] MEDS: Bupivacaine 0.25% 10 ML SDV ONE ×2 (11:02→11:30)
[2020-10-29] MEDS: Morphine 8 MG, EPINEPHrine 0.3 MG, Cefuroxime 750 MG, Ketorolac 30 MG, Sodium Chloride ... PRN ×10 (11:03→11:31)
[2020-10-29] MEDS: Vancomycin 1 GM SDV ONE ×2 (11:03→11:33)
--- NOTE | 2020-10-29 12:11 | PCM.POSTAN ---
POST ANESTHESIA ASSESSMENT - MENTAL STATUS Mental Status: Other (drowsy ) - VITAL SIGNS Vital Signs: 1203 124/70, 96%, 51 HR , 15 RR 97.9 Last Vital Signs Temp 36.6 C 10/29/20 07:55 Pulse 59 L 10/29/20 07:55 Resp 16 10/29/20 07:55 BP 161/82 H 10/29/20 07:55 Pulse Ox 96 10/29/20 07:55 - RESPIRATORY Respiratory Status: Respiratory Rate WNL, Airway Patent, O2 Saturation Stable, Supplemental Oxygen - CARDIOVASCULAR CV Status: Blood Pressure Stable, Slow Pulse Rate - GASTROINTESTINAL GI Status: No Symptoms - PAIN Pain Score: 0 - POST OP HYDRATION Hydration Status: Adequate & Stable
--- NOTE | 2020-10-29 12:49 | CR ---
Pelvis and right hip: AP view of the pelvis was obtained as well as crosstable lateral view of the right hip. Findings: No prior pelvis or hip exam is available. Osseous: Bilateral hip prostheses are seen. Right hip prosthesis is an interval change from prior study. Components are aligned within both hips. Underlying bony structures are intact. Impression: 1. Bilateral hip prosthesis with right side being recently placed. 2. No complicating abnormality is appreciated by x-ray. Diagnostic code #2
--- NOTE | 2020-10-29 15:30 | PCM48HPAN ---
Post Anesthesia Note - EVALUATION WITHIN 48HRS OF ANESTHETIC Vital Signs in Normal Range: Yes Patient Participated in Evaluation: Yes Respiratory Function Stable: Yes Airway Patent: Yes Cardiovascular Function Stable: Yes Hydration Status Stable: Yes Pain Control Satisfactory: Yes Nausea and Vomiting Control Satisfactory: Yes Mental Status Recovered: Yes Vital Signs: Last Vital Signs Temp 36.7 C 10/29/20 13:00 Pulse 58 L 10/29/20 13:41 Resp 16 10/29/20 13:41 BP 135/65 10/29/20 13:41 Pulse Ox 95 10/29/20 13:41
--- NOTE | 2020-11-10 07:43 | PCM.OPNOTE ---
- General Post-Op/Procedure Note Date of Surgery/Procedure: 10/29/20 Operative Procedure(s): right total hip arthroplasty Pre Op Diagnosis: right hip osteoarthrosis Post-Op Diagnosis: Same Anesthesia Technique: Local, MAC, Spinal Primary Surgeon: Alfred Phoenix Anesthesia Provider: Eden Ellington Systems Tester: Mary Serrano Systems Tester: Florina Elizabeth EBGood in mLs: 650 Complications: None Condition: Good Free Text/Narrative:: 56 cup 7 stem 28+0 MDM
--- NOTE | 2020-11-11 02:06 | OR ---
DATE OF OPERATION: 10/29/2020 SURGEON: Alfred Phoenix MD OPERATION PERFORMED: Right total hip arthroplasty. PREOPERATIVE DIAGNOSIS: Right hip osteoarthrosis. POSTOPERATIVE DIAGNOSIS: Right hip osteoarthrosis. ANESTHESIA: Local MAC with spinal. ANESTHESIA PROVIDER: Eden Ellington. ASSISTANTS: Mary Serrano PA-C and Florina Elizabeth LPN. ESTIMATED BLOOD LOSS: 650 mL. COMPLICATIONS: None. CONDITION: Stable. IMPLANT: 1. [place] size 56 mm solid Tritanium II acetabular cup. 2. [place] size 7 Accolade II stem. 3. [place] size 28 +0 MDM components. DESCRIPTION OF PROCEDURE: The patient was identified in the preoperative holding area and proper site was marked identified by surgeon. The patient was taken back to the operating theater where after adequate anesthesia, the patient was placed in a left lateral decubitus position. Axillary roll was placed. All bony prominences were well padded. The patient's gluteal fold was parallel to the floor. Right hip was then sterilely prepped and draped in the usual sterile fashion. OR time- out was performed. The patient received 2 g IV Ancef. Standard posterior incision was made centered over the greater trochanter. This was taken down to the IT band and gluteal fascia which was incised along the incisional length. Charnley retractor was then placed. Short external rotators were identified and takedown of short external rotators was done from the level of the piriformis down to the lesser trochanter. Hip was then dislocated and neck cut was completed. Attention was turned to the acetabulum. Anterior and posterior acetabular retractors were placed. Circumferential removal of the labrum as well as pulvinar was done at this time. Starting with a 50 reamer, I was able to ream up to a 56 which was found to have adequate purchase with a good bony bleeding bed. A 56 mm solid Tritanium II acetabular cup was impacted into anatomic position for the patient. The MDM liner was then impacted into place and attention was turned to the femur. Box chisel was used out laterally. Starter awl was placed down the canal. Starting with 0 broach, I was able to broach up to a size 7 which was found to be rotationally and vertically stable. We then trialed +0 components. The patient had adequate alevism of leg lengths and was stable throughout range of motion. Bone hook was used to dislocate the trial components. The trial components were then removed and a size 7 Accolade II stem was impacted into place. MDM components with 28/42 MDM components were constructed on the back table and then impacted onto the stem. Hip was then relocated. #5 Ethibond suture was used for closure of the short external rotators and capsule. 1 L of Irrisept irrigation was irrigated through the hip and 1 L pulse lavage irrigation with Ancef. Topical tranexamic acid and vancomycin powder were placed. Periarticular injection was completed. #2 barbed suture was used for closure of the IT band and gluteal fascia, 2-0 Vicryl was used subcutaneously, and Prineo was used for closure of the skin. The patient tolerated the procedure well and sent to PACU in stable condition. LESTER /[id number]
== END | disposition home or self-care (01) ==
LOC: JD.SDS 07:52 → EDSTATUS 11:00
PROVIDERS: ATTEND Orthopaedic Surgery
DX: M16.11 Unilateral primary osteoarthritis, right hip (principal); I48.91 Unspecified atrial fibrillation; E11.9 Type 2 diabetes mellitus without complications; I10 Essential (primary) hypertension; G47.33 Obstructive sleep apnea (adult) (pediatric); E78.00 Pure hypercholesterolemia, unspecified; Z79.4 Long term (current) use of insulin; Z88.8 Allergy status to other drugs, medicaments and biological substances; Z79.899 Other long term (current) drug therapy; Z79.01 Long term (current) use of anticoagulants; Z98.890 Other specified postprocedural states
CPT/HCPCS: 27130; 36415; 73501; 85730; 86850; 86900; 86901; 97116; 97161; A9270; C1776; J0171; J0690; J0697; J1885; J2001; J2250; J2270; J2405; J2704; J3370; J3490; J7120; 01214; 87641

== ENCOUNTER 2021-03-13 21:38 | Emergency (ER) | payer MEDICARE, BC ==
[2021-03-13] MEDS ORDERED: Sodium Chloride 0.9% 10 ML Syringe FLUSH PRN (22:10)
[2021-03-13] MEDS ORDERED: cefTRIAXone 1 GM in Sodium Chloride 0.9% 100 ML IV ONE (23:33)
--- NOTE | 2021-03-13 23:40 | EDM.PDOC ---
ED HPI GENERAL MEDICAL PROBLEM - General Chief Complaint: Genitourinary Problem Stated Complaint: FEVER/UTI Time Seen by Provider: 03/13/21 21:48 Source of Information: Reports: Patient History Limitations: Reports: No Limitations - History of Present Illness INITIAL COMMENTS - FREE TEXT/NARRATIVE: The patient presents with a fever and a UTI. He saw India Kailajustice at [facility] this week. He had a UTI. He was on keflex but he was not getting better. She gave him a shot of rocephin and switched him to bactrim. He spiked a temp of 101.6. He took some tylenol and felt better when he arrived here. He has no urinary symptoms such as dysuria or frequency. He had a UTI in the past. He has no cough, congestion, runny nose, chest pain, shortness of breath, abdominal pain nausea or vomiting. A COVID 19 test was done and it was negative. Onset: Gradual Duration: Day(s): Severity: Moderate Improves with: Reports: None, Medication Associated Symptoms: Reports: Fever/Chills. Denies: Chest Pain, Cough, Headaches, Nausea/Vomiting, Shortness of Breath - Related Data Allergies Allergy/AdvReac Type Severity Reaction Status Date / Time No Known Allergies Allergy Verified 03/13/21 21:51 Home Meds: Home Meds Apixaban [Eliquis] 5 mg PO BID 03/07/20 [History] Flecainide Acetate 100 mg PO DAILY 03/07/20 [History] Irbesartan 300 mg PO DAILY 03/07/20 [History] Triamterene/Hydrochlorothiazid [Triamterene-HCTZ 37.5-25 MG] 1 tab PO DAILY 03/07/20 [History] atenoloL [Atenolol] 50 mg PO BID 03/07/20 [History] Insulin Aspart [NovoLOG] 1 dose SQ TIDAC PRN 10/28/20 [History] Insulin Glarg,Human.Rec.Analog [Lantus] 15 units SQ BID 10/28/20 [History] Omeprazole Magnesium [Prilosec Otc] 20 mg PO DAILY 10/28/20 [History] Pravastatin Sodium 80 mg PO DAILY 10/28/20 [History] dilTIAZem HCL [Cardizem Cd] 240 mg PO DAILY 10/28/20 [History] Azithromycin [Zithromax] 500 mg PO BID 03/13/21 [History] Famotidine [Pepcid AC] 20 mg PO DAILY 03/13/21 [History] Sulfamethoxazole/Trimethoprim [Bactrim Ds Tablet] 1 each PO BID 03/13/21 [History] Past Medical History HEENT History: Reports: Impaired Vision Cardiovascular History: Reports: Afib, High Cholesterol, Hypertension, Other (See Below) Other Cardiovascular History: atrial fibrilation, aortic valve stenosis, chest discomfort, fluid retention, tachycardia Respiratory History: Reports: Sleep Apnea, Other (See Below) Other Respiratory History: dry cough Gastrointestinal History: Reports: GERD Genitourinary History: Reports: Other (See Below) Other Genitourinary History: hematuria, impotence [employer] History: Reports: None Musculoskeletal History: Reports: Other (See Below) Other Musculoskeletal History: right hip pain, arthritis Neurological History: Reports: None Psychiatric History: Reports: None Endocrine/Metabolic History: Reports: Diabetes, Type II, Vitamin D Deficiency Hematologic History: Reports: Other (See Below) Other Hematologic History: hypokalemia, leukocytosis Immunologic History: Reports: None Oncologic (Cancer) History: Reports: None Dermatologic History: Reports: Other (See Below) Other Dermatologic History: dermatophytosis, sebaceous cyst - Infectious Disease History Infectious Disease History: Reports: Novel Coronavirus Other Infectious Disease History: aug 2020 - Past Surgical History HEENT Surgical History: Reports: None Cardiovascular Surgical History: Reports: Cardiac Ablation Respiratory Surgical History: Reports: None GI Surgical History: Reports: Colonoscopy Male Surgical History: Reports: None Endocrine Surgical History: Reports: None Neurological Surgical History: Reports: None Musculoskeletal Surgical History: Reports: Knee Replacement, Other (See Below) Other Musculoskeletal Surgeries/Procedures:: bilateral knee replacement, hip replacement Oncologic Surgical History: Reports: None Dermatological Surgical History: Reports: None Social & Family History - Tobacco Use Tobacco Use Status *Q: Never Tobacco User - Caffeine Use Caffeine Use: Reports: Soda - Recreational Drug Use Recreational Drug Use: No - Living Situation & Occupation Living situation: Reports: Occupation: Employed ED ROS GENERAL - Review of Systems Review Of Systems: See Below Constitutional: Reports: Fever HEENT: Reports: No Symptoms Respiratory: Reports: No Symptoms Cardiovascular: Reports: No Symptoms Endocrine: Reports: No Symptoms GI/Abdominal: Reports: No Symptoms : Reports: No Symptoms Musculoskeletal: Reports: No Symptoms Skin: Reports: No Symptoms ED EXAM, RENAL/ - Physical Exam Exam: See Below Exam Limited By: No Limitations General Appearance: Alert, No Apparent Distress Ears: Normal External Exam Head: Atraumatic, Normocephalic Neck: Normal Inspection Respiratory/Chest: No Respiratory Distress, Lungs Clear, Normal Breath Sounds Cardiovascular: Regular Rate, Rhythm, No Edema, No Murmur GI/Abdominal: Soft, Non-Tender, No Organomegaly, No Mass Back Exam: Normal Inspection Extremities: Normal Inspection Course - Vital Signs Last Recorded V/S: Last Vital Signs Temp 97.0 F 03/13/21 21:49 Pulse 59 L 03/13/21 21:49 Resp 20 03/13/21 21:49 BP 150/112 H 03/13/21 21:49 Pulse Ox 96 03/13/21 21:49 - Orders/Labs/Meds Orders: Active Orders 24 hr Category Date Time Status Peripheral IV Care [RC] . DIRECTED Care 03/13/21 22:11 Active Sodium Chloride 0.9% [Saline Flush] Med 03/13/21 22:10 Active 10 ml FLUSH ASDIRECTED PRN cefTRIAXone [Rocephin] 1 gm Med 03/13/21 23:33 Ordered Sodium Chloride 0.9% [Normal Saline] 100 ml IV ONETIME Peripheral IV Insertion Adult [OM.PC] Stat Oth 03/13/21 22:10 Ordered Medication Orders Ceftriaxone Sodium 1 gm/ (Sodium Chloride) 100 mls @ 200 mls/hr IV ONETIME ONE Stop: 03/14/21 00:02 Sodium Chloride (Sodium Chloride 0.9% 10 Ml Syringe) 10 ml FLUSH ASDIRECTED PRN PRN Reason: Keep Vein Open Last Admin: 03/13/21 22:30 Dose: 10 ml Documented by: [id number] Labs: Laboratory Tests 03/13/21 03/13/21 03/13/21 Range/Units 22:20 22:20 22:25 WBC 11.61 H (4.23-9.07) K/mm3 RBC 5.23 (4.63-6.08) M/mm3 Hgb 15.1 (13.7-17.5) gm/dl Hct 44.2 (40.1-51.0) % MCV 84.5 (79.0-92.2) fl MCH 28.9 (25.7-32.2) pg MCHC 34.2 (32.2-35.5) g/dl RDW Std Deviation 42.8 (35.1-43.9) fL Plt Count 176 (163-337) K/mm3 MPV 9.9 (9.4-12.3) fl Neut % (Auto) 72.6 H (34.0-67.9) % Lymph % (Auto) 14.7 L (21.8-53.1) % [place] % (Auto) 11.3 (5.3-12.2) % Eos % (Auto) 0.9 (0.8-7.0) Baso % (Auto) 0.3 (0.1-1.2) % Neut # (Auto) 8.43 H (1.78-5.38) K/mm3 Lymph # (Auto) 1.71 (1.32-3.57) K/mm3 [place] # (Auto) 1.31 H (0.30-0.82) K/mm3 Eos # (Auto) 0.11 (0.04-0.54) K/mm3 Baso # (Auto) 0.03 (0.01-0.08) K/mm3 Sodium 135 L (136-145) mEq/L Potassium 3.4 L (3.5-5.1) mEq/L Chloride 99 (98-107) mEq/L Carbon Dioxide 25 (21-32) mEq/L Anion Gap 14.4 (5-15) BUN 20 H (7-18) mg/dL Creatinine 1.1 (0.7-1.3) mg/dL Est Cr Clr Drug Dosing 68.60 mL/min Estimated GFR (MDRD) > 60 (>60) mL/min BUN/Creatinine Ratio 18.2 H (14-18) Glucose 133 H (83-115) mg/dL Calcium 8.7 (8.5-10.1) mg/dL Total Bilirubin 0.7 (0.2-1.0) mg/dL AST 24 (15-37) U/L ALT 33 (16-63) U/L Alkaline Phosphatase 80 (46-116) U/L C-Reactive Protein 18.4 H* (<1.0) mg/dL Total Protein 6.8 (6.4-8.2) g/dl Albumin 3.3 L (3.4-5.0) g/dl Globulin 3.5 gm/dL Albumin/Globulin Ratio 0.9 L (1-2) Urine Color Yellow (Yellow) Urine Appearance Clear (Clear) Urine pH 6.5 (5.0-8.0) Ur Specific [place] 1.020 (1.005-1.030) Urine Protein 1+ H (Negative) Urine Glucose (UA) Negative (Negative) Urine Ketones Trace H (Negative) Urine Occult Blood 2+ H (Negative) Urine Nitrite Negative (Negative) Urine Bilirubin Negative (Negative) Urine Urobilinogen 4.0 H (0.2-1.0) Ur Leukocyte Esterase 1+ H (Negative) Urine RBC 10-20 H (0-5) /hpf Urine WBC 20-30 H (0-5) /hpf Ur Squamous Epith Cells 0-5 (0-5) /hpf Urine Bacteria Few (FEW) /hpf Urine Mucus Few (FEW) /hpf Meds: Medications Generic Name Dose Route Start Last Admin Trade Name Freq PRN Reason Stop Dose Admin Ceftriaxone Sodium 1 gm/ 100 mls @ 200 mls/hr 03/13/21 23:33 Sodium Chloride IV 03/14/21 00:02 ONETIME ONE Sodium Chloride 10 ml 03/13/21 22:10 03/13/21 22:30 Sodium Chloride 0.9% 10 Ml Syringe FLUSH 10 ml ASDIRECTED PRN Administration Keep Vein Open - Re-Assessments/Exams Free Text/Narrative Re-Assessment/Exam: 03/13/21 23:38 I ordered an IV, labs and UA. His WBC was elevated at 11.61. His Na was 135. His K was 3.4. His glucose was elevated at 133. His CRP is elevated at 18.4. His culture from a day ago is growing out a gram negative neel which could be E- coli. I will give him rocephin IV and discharge him home. The Bactrim should cover the infection. Departure - Departure Time of Disposition: 23:45 Disposition: Home, Self-Care 01 Condition: Good Clinical Impression: UTI, Urinary tract infectious disease - Discharge Information *PRESCRIPTION DRUG MONITORING PROGRAM REVIEWED*: Not Applicable *COPY OF PRESCRIPTION DRUG MONITORING REPORT IN PATIENT SHARON: Not Applicable Referrals: Tresa Seymour PA-C [Primary Care Provider] - 3 Days Additional Instructions: Drink plenty of fluids. Keep taking the antibiotics as prescribed. Take tylenol or motrin as needed for any fever or pain. Please return if you are worse. Follow up with [place] in Tuesday. Sepsis Event Note (ED) - Evaluation Sepsis Screening Result: No Definite Risk - Focused Exam Vital Signs: Vital Signs Temp Pulse Resp BP Pulse Ox 03/13/21 21:49 97.0 F 59 L 20 150/112 H 96 - My Orders Last 24 Hours: My Active Orders 03/13/21 22:10 Sodium Chloride 0.9% [Saline Flush] 10 ml FLUSH ASDIRECTED PRN Peripheral IV Insertion Adult [OM.PC] Stat 03/13/21 22:11 Peripheral IV Care [RC] . DIRECTED 03/13/21 23:33 cefTRIAXone [Rocephin] 1 gm Sodium Chloride 0.9% [Normal Saline] 100 ml IV ONETIME - Assessment/Plan Last 24 Hours: My Active Orders 03/13/21 22:10 Sodium Chloride 0.9% [Saline Flush] 10 ml FLUSH ASDIRECTED PRN Peripheral IV Insertion Adult [OM.PC] Stat 03/13/21 22:11 Peripheral IV Care [RC] . DIRECTED 03/13/21 23:33 cefTRIAXone [Rocephin] 1 gm Sodium Chloride 0.9% [Normal Saline] 100 ml IV ONETIME
== END 2021-03-14 00:18 | disposition home or self-care (01) ==
LOC: JD.ED 21:38
DX: N39.0 Urinary tract infection, site not specified (principal); I48.91 Unspecified atrial fibrillation; E78.00 Pure hypercholesterolemia, unspecified; I10 Essential (primary) hypertension; K21.9 Gastro-esophageal reflux disease without esophagitis; E11.9 Type 2 diabetes mellitus without complications; Z79.01 Long term (current) use of anticoagulants; Z79.4 Long term (current) use of insulin; Z79.899 Other long term (current) drug therapy
CPT/HCPCS: 36415; 80053; 81001; 85025; 86140; 96365; 99283; J0696

== ENCOUNTER 2022-09-29 14:47 | Inpatient (IN) | payer MEDICARE, BC ==
[2022-09-29] MEDS ORDERED: Furosemide 40 MG/4 ML VIAL IVPUSH ONE ×2 (18:22→21:24)
[2022-09-29] MEDS ORDERED: Zolpidem 5 MG Tab PO PRN (21:16)
[2022-09-29] MEDS ORDERED: Acetaminophen 325 MG Tab PO PRN (21:16)
[2022-09-29] MEDS ORDERED: Pantoprazole 40 MG Vial IVPUSH ONE (21:16)
[2022-09-29] MEDS ORDERED: Magnesium Hydroxide 400 MG/5 ML Susp 30 ML Cup PO PRN (21:16)
[2022-09-29] MEDS ORDERED: LORazepam 2 MG/ML SDV IV PRN (21:16)
[2022-09-29] MEDS ORDERED: Non-Formulary Medication 1 Each (Insulin Aspart 100 UNIT/ML Pen) SQ PRN (21:22)
[2022-09-29] MEDS ORDERED: Insulin Lispro 100 Unit/ML 3 ML KwikPen SUBCUT ONE (23:23)
[2022-09-30] MEDS: Insulin Lispro 100 Unit/ML 3 ML KwikPen SUBCUT SCH ×9 (00:12→21:51)
[2022-09-30] MEDS ORDERED: Pantoprazole 40 MG Tab.CR PO SCH (07:00)
[2022-09-30] MEDS: Losartan 100 MG Tab PO SCH (08:00)
[2022-09-30] MEDS: Pravastatin 20 MG Tab PO SCH (08:00)
[2022-09-30] MEDS: Atenolol 50 MG Tab PO SCH ×2 (08:01→21:09)
[2022-09-30] MEDS: Apixaban 5 MG Tab PO SCH ×2 (08:03→21:12)
[2022-09-30] MEDS: Diltiazem 240 MG Cap.ER PO SCH (08:03)
[2022-09-30] MEDS ORDERED: Non-Formulary Medication 1 Each (Omeprazole Magnesium [Prilosec Otc] 20 MG Tablet.Dr) PO SCH (09:00)
[2022-09-30] MEDS ORDERED: Spironolactone 25 MG Tab PO SCH (09:00)
[2022-09-30] MEDS: Potassium Chloride 20 MEQ Tab.ER PO SCH ×3 (10:09→21:11)
[2022-09-30] MEDS: Spironolactone 25 MG Tab PO SCH (10:10)
[2022-09-30] MEDS: Ezetimibe 10 MG Tab PO SCH (17:21)
[2022-09-30] MEDS ORDERED: Insulin Glargine,Human Rec. Analog 100 Units/ML 3 ML Pen SUBCUT SCH (21:00)
[2022-10-01] MEDS ORDERED: Pantoprazole 40 MG Tab.CR PO SCH (07:00)
[2022-10-01] MEDS: Insulin Lispro 100 Unit/ML 3 ML KwikPen SUBCUT SCH ×4 (07:53→11:45)
[2022-10-01] MEDS: Pravastatin 20 MG Tab PO SCH (09:07)
[2022-10-01] MEDS: Diltiazem 240 MG Cap.ER PO SCH (09:09)
[2022-10-01] MEDS: Apixaban 5 MG Tab PO SCH (09:09)
[2022-10-01] MEDS: Ezetimibe 10 MG Tab PO SCH (09:09)
[2022-10-01] MEDS: Losartan 100 MG Tab PO SCH (09:09)
[2022-10-01] MEDS: Spironolactone 25 MG Tab PO SCH (09:10)
[2022-10-01] MEDS: Atenolol 50 MG Tab PO SCH (09:10)
== END 2022-10-01 15:42 | disposition home or self-care (01) | DRG 291 ==
LOC: JD.ED 14:47 → JD.MS 18:46
PROVIDERS: ADMIT Pediatrics; ATTEND Pediatrics
DX: I11.0 Hypertensive heart disease with heart failure (principal); I50.813 Acute on chronic right heart failure; I48.91 Unspecified atrial fibrillation; I50.33 Acute on chronic diastolic (congestive) heart failure; G47.30 Sleep apnea, unspecified; I48.20 Chronic atrial fibrillation, unspecified; E11.9 Type 2 diabetes mellitus without complications; E78.5 Hyperlipidemia, unspecified; G47.33 Obstructive sleep apnea (adult) (pediatric); I25.10 Atherosclerotic heart disease of native coronary artery without angina pectoris; E11.65 Type 2 diabetes mellitus with hyperglycemia; M47.896 Other spondylosis, lumbar region; I45.81 Long QT syndrome; I35.0 Nonrheumatic aortic (valve) stenosis; Z86.16 Personal history of COVID-19; E78.00 Pure hypercholesterolemia, unspecified; K21.9 Gastro-esophageal reflux disease without esophagitis; Z79.01 Long term (current) use of anticoagulants; Z79.4 Long term (current) use of insulin; Z79.899 Other long term (current) drug therapy
CPT/HCPCS: 36415; 71045; 71045-26; 80048; 80053; 81001; 82947; 83605; 83690; 83735; 83880; 84484; 85025; 85610; 85652; 93005; 93880; 93880-26; A9270-GY; C9113; J1815; J1815-GY; J1940